=== PATIENT | female | born 1935 ===

== ENCOUNTER 2020-09-29 09:43 | Emergency (ER) | payer SELFPAY ==
[~2020-09-29] VITALS: Ht 165.1 cm; Wt 62.0 kg
--- NOTE | 2020-09-29 10:00 | NUR ---
PT BIB EMS WITH COUGH AND SOB AFTER PT TESTED POSITIVE FOR COVID 19 THIS WEEK. PT IN GOWN IN [facility]. DR MENDOZA AT . PT EDUCATED ON ER PROCESS AND POC AND VERBALIZES UNDERSTANDING. PT HAS CALL LIGHT WITHIN REACH AND DENIES ANY NEEDS AT THIS TIME.
--- NOTE | 2020-09-29 12:01 | NUR ---
PT D/C WITH D/C SUMMARY. PT AMBULATES TO SPOUSE ROOM WHO IS ALSO A PT IN THE ER. PT DENIES ANY OTHER NEEDS PERTAINING TO THIS VISIT.
[2020-09-29 12:03] VITALS: BP 168/91
--- NOTE | 2020-09-29 13:41 | NUR ---
[employer]put RN: transport has been arranged back to [facility] facility via [facility]. expected pickup time 1430
== END 2020-09-29 12:05 | disposition home or self-care (01) ==
LOC: ED 11:59
DX: U07.1 COVID-19 (principal); R06.02 Shortness of breath
CPT/HCPCS: 71046; 93005; 99285; U0003; U0005

== ENCOUNTER 2020-10-09 23:07 | Inpatient (IN) | payer MEDICARE ==
[~2020-10-09] VITALS: Ht 177.8 cm; Wt 60.1 kg
[2020-10-09] MEDS ORDERED: ALEN70SO3 PO (23:26)
[2020-10-09] MEDS ORDERED: DONE10TA14 PO (23:26)
[2020-10-09] MEDS ORDERED: VENL75TA2 PO (23:27)
--- NOTE | 2020-10-09 23:27 | NUR ---
BIB [facility] FOR C/O HYPOXIA AND WEAKNESS,, PT HAS NO SOB WAS ON 100% NON REBREATHER BY [facility] PLACED ON 4 L NC AND PULSE OX 96%-
[2020-10-10 00:33] LABS: MEAN CORPUSCULAR HEMOGLOBIN 29.9 pg (27.0-34.8); MEAN CORPUSCULAR HGB CONC 33.6 g/dL (32.4-35.8); MEAN PLATELET VOLUME 9.2 fL (7.4-10.4); PLATELET COUNT 444 x10^3/uL (130-400); RED BLOOD COUNT 6.48 x10^6/uL (3.82-5.3); RED CELL DISTRIBUTION WIDTH 14.1 % (9.6-15.2)
[2020-10-10 00:43] LABS: ALBUMIN 2.4 g/dL (3.4-5.0); ANION GAP 12 mmol/L (5-15); CHLORIDE 113 mmol/L (98-107)
[2020-10-10 00:46] LABS: ALANINE AMINOTRANSFERASE 16 U/L (12-78); ALKALINE PHOSPHATASE 100 U/L (45-117); BILIRUBIN,TOTAL 0.7 mg/dL (0.2-1.0); CREATININE 1.44 mg/dL (0.55-1.02); TOTAL PROTEIN 8.7 g/dL (6.4-8.2); TROPONIN I < 0.015 ng/mL (0.000-0.045)
--- NOTE | 2020-10-10 00:56 | NUR ---
UPDATED DAUGHTER ON POC VIA PHONE.
[2020-10-10 00:59] LABS: BAND#(MANUAL) 0.51 x10^3/uL; BANDS%(MANUAL) 3 % (0-7); EOS#(MANUAL) 0.17 x10^3/uL (0.0-0.4); EOS% (MANUAL) 1 % (1-7); LYMPH#(MANUAL) 0.34 x10^3/uL (1-3.4); LYMPHS% (MANUAL) 2 % (22-44); METAMYELOCYTES# (MANUAL) 0.17 x10^3/uL (0-0); METAMYELOCYTES% (MANUAL) 1 % (0-1); MONOS#(MANUAL) 1.19 x10^3/uL (0.3-2.7); MONOS% (MANUAL) 7 % (2-9); SEG#(MANUAL) 14.62 x10^3/uL (1.8-6.8); SEGS% (MANUAL) 86 % (42-75)
[2020-10-10 01:00] LABS: <PLATELET ESTIMATE> INCREASED; <RBC MORPHOLOGY> NORMAL; LARGE PLATELETS 1+
[2020-10-10] MEDS ORDERED: SODIUM CHLORIDE 0.9% 1,000ML IVBOLUS ONE (01:30)
[2020-10-10] MEDS ORDERED: AZITHROMYCIN 500 MG in SODIUM CHLORIDE 0.9% 250 ML IV ONE (01:30)
[2020-10-10] MEDS ORDERED: CEFTRIAXONE 1,000 MG in DEXTROSE 5% 50 ML IVPB ONE (01:30)
[2020-10-10] MEDS ORDERED: PHARMACY MAY ADJ FOR RENAL FX MC PRN ×2 (02:30→17:00)
[2020-10-10] MEDS ORDERED: ACETAMINOPHEN 650 MG SUPP PR PRN (02:30)
[2020-10-10] MEDS ORDERED: ACETAMINOPHEN 325 MG TABLET PO PRN (02:30)
[2020-10-10] MEDS: ALBUTEROL-IPRATROPIUM MDI INH INH SCH ×5 (02:30→22:22)
[2020-10-10] MEDS ORDERED: ONDANSETRON 2MG/ML, 2ML IVPush PRN (02:30)
[2020-10-10] MEDS ORDERED: MELATONIN 5 MG TABLET PO PRN (02:30)
--- NOTE | 2020-10-10 03:02 | NUR ---
PATIENT PLACED ON INPATIENT HOSPITAL BED AT THIS TIME.
--- NOTE | 2020-10-10 04:00 | NUR ---
PATIENT REMOVED RIGHT 20G IV. PLACED NEW IV LEFT WRIST 22G.
[2020-10-10] MEDS: ENOXAPARIN 30 MG/0.3 ML SQ SCH (05:40)
[2020-10-10] MEDS: LABETALOL 5MG/ML, 20ML IVPush PRN ×2 (05:50→13:58)
[2020-10-10] MEDS ORDERED: LABETALOL 5MG/ML, 20ML ONE (05:54)
--- NOTE | 2020-10-10 06:56 | NUR ---
REPORT GIVEN TO LAUREL CRUZ
--- NOTE | 2020-10-10 07:33 | NUR ---
PT SLEEPING ON HOSPITAL BED, AROUSABLE TO VOICE. PT NOT ABLE TO FOLLOW INSTRUCTIONS FOR ORAL TEMPERATURE. VSS, NADN. AWAITING ADMIT.
--- NOTE | 2020-10-10 07:51 | NUR ---
PT ATTEMPTING TO REMOVE COVID SWAB DURING COLLECTION. REFUSING 2ND NARE. OBTAINED SAMPLE WALKED TO LAB.
[2020-10-10] MEDS: FLUTICASONE/VILANTEROL 100-25MCG/INH INH SCH (09:00)
[2020-10-10] MEDS ORDERED: FAMOTIDINE 20 MG/2 ML IVPush SCH (09:00)
[2020-10-10] MEDS: ZINC SULFATE 220 MG CAPSULE PO SCH (09:14)
[2020-10-10] MEDS: ASCORBIC ACID 500 MG TABLET PO SCH ×2 (09:14→22:22)
[2020-10-10] MEDS: DEXAMETHASONE 4 MG/ML, 1ML IVPush SCH (09:14)
[2020-10-10 13:47] VITALS: BP 179/115
[2020-10-10 15:02] VITALS: BP 154/92
[2020-10-10 16:22] VITALS: BP 150/89
[2020-10-10] MEDS: PIPERACILLIN/TAZO 3.375 GM in DEXTROSE 5% 50 ML IV SCH ×2 (17:29→23:46)
[2020-10-10] MEDS ORDERED: SODIUM CHLORIDE 0.9% 1,000 ML IV SCH (17:30)
[2020-10-10] MEDS ORDERED: REMDESIVIR 200 MG in SODIUM CHLORIDE 0.9% 250 ML IVPB ONE (18:00)
[2020-10-10 19:58] VITALS: BP 164/92
[2020-10-11] VITALS (7 sets, daily range): BP systolic 141–194; BP diastolic 91–113
[2020-10-11] MEDS: LABETALOL 5MG/ML, 20ML IVPush PRN ×3 (01:32→21:06)
[2020-10-11] MEDS: PIPERACILLIN/TAZO 3.375 GM in DEXTROSE 5% 50 ML IV SCH ×4 (04:37→23:30)
[2020-10-11] MEDS: ALBUTEROL-IPRATROPIUM MDI INH INH SCH ×4 (05:49→21:05)
[2020-10-11] MEDS: ENOXAPARIN 30 MG/0.3 ML SQ SCH (05:49)
[2020-10-11 06:34] LABS: MEAN CORPUSCULAR HEMOGLOBIN 29.9 pg (27.0-34.8); MEAN CORPUSCULAR HGB CONC 33.1 g/dL (32.4-35.8); MEAN PLATELET VOLUME 9.3 fL (7.4-10.4); PLATELET COUNT 416 x10^3/uL (130-400); RED BLOOD COUNT 5.75 x10^6/uL (3.82-5.3); RED CELL DISTRIBUTION WIDTH 14.4 % (9.6-15.2)
[2020-10-11 06:46] LABS: ANION GAP 7 mmol/L (5-15); CALCIUM 8.9 mg/dL (8.5-10.1); CHLORIDE 118 mmol/L (98-107)
[2020-10-11 06:52] LABS: ALANINE AMINOTRANSFERASE 13 U/L (12-78); ALKALINE PHOSPHATASE 78 U/L (45-117); BILIRUBIN,TOTAL 0.5 mg/dL (0.2-1.0); CREATININE 1.39 mg/dL (0.55-1.02); TOTAL PROTEIN 7.2 g/dL (6.4-8.2)
[2020-10-11 07:13] LABS: BAND#(MANUAL) 0.15 x10^3/uL; BANDS%(MANUAL) 1 % (0-7); EOS#(MANUAL) 0.15 x10^3/uL (0.0-0.4); EOS% (MANUAL) 1 % (1-7); LYMPH#(MANUAL) 1.06 x10^3/uL (1-3.4); LYMPHS% (MANUAL) 7 % (22-44); MONOS#(MANUAL) 0.91 x10^3/uL (0.3-2.7); MONOS% (MANUAL) 6 % (2-9); SEG#(MANUAL) 12.92 x10^3/uL (1.8-6.8); SEGS% (MANUAL) 85 % (42-75)
[2020-10-11 07:14] LABS: <PLATELET ESTIMATE> INCREASED; <RBC MORPHOLOGY> NORMAL
[2020-10-11 07:15] LABS: <PLT MORPHOLOGY> NORMAL PLT MORPH
[2020-10-11] MEDS: DEXAMETHASONE 4 MG/ML, 1ML IVPush SCH (08:43)
[2020-10-11] MEDS: FAMOTIDINE 20 MG TABLET PO SCH (08:44)
[2020-10-11] MEDS: ZINC SULFATE 220 MG CAPSULE PO SCH (08:44)
[2020-10-11] MEDS: ASCORBIC ACID 500 MG TABLET PO SCH ×2 (08:44→21:05)
[2020-10-11] MEDS: FLUTICASONE/VILANTEROL 100-25MCG/INH INH SCH (09:00)
[2020-10-11] MEDS ORDERED: FAMOTIDINE 20 MG/2 ML IVPush SCH (09:00)
[2020-10-11 09:10] LABS: ALBUMIN 2.1 g/dL (3.4-5.0); CALCIUM 8.8 mg/dL (8.5-10.1)
[2020-10-11 09:14] LABS: ALANINE AMINOTRANSFERASE 9 U/L (12-78); ALKALINE PHOSPHATASE 81 U/L (45-117); BILIRUBIN,TOTAL 0.6 mg/dL (0.2-1.0); CREATININE 1.38 mg/dL (0.55-1.02); TOTAL PROTEIN 7.1 g/dL (6.4-8.2)
[2020-10-11 09:16] LABS: ANION GAP 7 mmol/L (5-15); CHLORIDE 120 mmol/L (98-107)
[2020-10-11] MEDS: D5%-0.45% NACL 1,000 ML IV SCH (16:28)
[2020-10-11] MEDS: REMDESIVIR 100 MG in SODIUM CHLORIDE 0.9% 250 ML IVPB SCH (18:19)
[2020-10-12 00:40] VITALS: BP 131/87
[2020-10-12] MEDS: PIPERACILLIN/TAZO 3.375 GM in DEXTROSE 5% 50 ML IV SCH ×3 (05:31→17:47)
[2020-10-12] MEDS: ENOXAPARIN 30 MG/0.3 ML SQ SCH (05:31)
[2020-10-12] MEDS: ALBUTEROL-IPRATROPIUM MDI INH INH SCH ×4 (05:31→21:40)
[2020-10-12 05:46] LABS: BASOPHILS % (AUTO) 0 % (0-1); EOSINOPHILS % (AUTO) 1 % (1-7); LYMPHOCYTES % (AUTO) 5 % (22-44); MEAN CORPUSCULAR HEMOGLOBIN 29.9 pg (27.0-34.8); MEAN CORPUSCULAR HGB CONC 33.2 g/dL (32.4-35.8); MEAN PLATELET VOLUME 8.9 fL (7.4-10.4); MONOCYTES % (AUTO) 9 % (2-9); NEUTROPHILS % (AUTO) 85 % (42-75); PLATELET COUNT 408 x10^3/uL (130-400); RED BLOOD COUNT 5.74 x10^6/uL (3.82-5.3); RED CELL DISTRIBUTION WIDTH 14.7 % (9.6-15.2)
[2020-10-12 05:50] LABS: CHLORIDE 125 mmol/L (98-107)
[2020-10-12 06:11] LABS: ALANINE AMINOTRANSFERASE 11 U/L (12-78); ALBUMIN 1.8 g/dL (3.4-5.0); ALKALINE PHOSPHATASE 69 U/L (45-117); ANION GAP 9 mmol/L (5-15); BILIRUBIN,TOTAL 0.5 mg/dL (0.2-1.0); CALCIUM 8.8 mg/dL (8.5-10.1); CREATININE 1.55 mg/dL (0.55-1.02); TOTAL PROTEIN 6.6 g/dL (6.4-8.2)
[2020-10-12] MEDS: ZINC SULFATE 220 MG CAPSULE PO SCH (09:00)
[2020-10-12] MEDS: FLUTICASONE/VILANTEROL 100-25MCG/INH INH SCH (09:00)
[2020-10-12] MEDS: DEXAMETHASONE 4 MG/ML, 1ML IVPush SCH (09:36)
[2020-10-12] MEDS: ASCORBIC ACID 500 MG TABLET PO SCH ×2 (09:36→21:40)
[2020-10-12] MEDS: FAMOTIDINE 20 MG TABLET PO SCH (09:37)
[2020-10-12 11:51] VITALS: BP 202/125
[2020-10-12] MEDS: LABETALOL 5MG/ML, 20ML IVPush PRN (12:01)
[2020-10-12 13:08] VITALS: BP 129/77
[2020-10-12] MEDS: D5%-0.45% NACL 1,000 ML IV SCH (18:38)
[2020-10-12] MEDS: REMDESIVIR 100 MG in SODIUM CHLORIDE 0.9% 250 ML IVPB SCH (18:39)
[2020-10-12 19:40] VITALS: BP 165/91
[2020-10-13 00:05] VITALS: BP 160/81
[2020-10-13] MEDS: PIPERACILLIN/TAZO 3.375 GM in DEXTROSE 5% 50 ML IV SCH ×3 (00:15→11:30)
[2020-10-13] MEDS: ENOXAPARIN 30 MG/0.3 ML SQ SCH (05:19)
[2020-10-13] MEDS: ALBUTEROL-IPRATROPIUM MDI INH INH SCH ×4 (05:20→21:54)
[2020-10-13 07:35] LABS: ALBUMIN 1.8 g/dL (3.4-5.0); ANION GAP 10 mmol/L (5-15); CALCIUM 8.7 mg/dL (8.5-10.1); CHLORIDE 124 mmol/L (98-107)
[2020-10-13 07:39] LABS: ALANINE AMINOTRANSFERASE 12 U/L (12-78); ALKALINE PHOSPHATASE 68 U/L (45-117); BILIRUBIN,TOTAL 0.5 mg/dL (0.2-1.0); CREATININE 2.42 mg/dL (0.55-1.02); TOTAL PROTEIN 6.6 g/dL (6.4-8.2)
[2020-10-13] MEDS: FAMOTIDINE 20 MG TABLET PO SCH (09:00)
[2020-10-13] MEDS: FLUTICASONE/VILANTEROL 100-25MCG/INH INH SCH (09:00)
[2020-10-13 09:06] VITALS: BP 171/75
[2020-10-13] MEDS: DEXAMETHASONE 4 MG/ML, 1ML IVPush SCH (09:48)
[2020-10-13] MEDS: ASCORBIC ACID 500 MG TABLET PO SCH ×2 (09:48→21:54)
[2020-10-13] MEDS: ZINC SULFATE 220 MG CAPSULE PO SCH (09:49)
[2020-10-13 13:15] VITALS: BP 166/82
[2020-10-13] MEDS: DEXTROSE 5% 1,000 ML IV SCH (14:05)
[2020-10-13] MEDS ORDERED: PIPERACILLIN/TAZO(ZOSYN) 2.25 GM in NS 50 ML IVPB SCH (17:00)
[2020-10-13] MEDS: PIPERACILLIN/TAZO 2.25 GM in DEXTROSE 5% 50 ML IVPB SCH ×2 (17:00→18:37)
[2020-10-13 20:00] VITALS: BP 149/84
[2020-10-14] MEDS: PIPERACILLIN/TAZO 2.25 GM in DEXTROSE 5% 50 ML IVPB SCH ×5 (00:33→23:51)
[2020-10-14 00:49] VITALS: BP 175/90
[2020-10-14] MEDS: LABETALOL 5MG/ML, 20ML IVPush PRN (00:54)
[2020-10-14 01:05] VITALS: BP 124/75
[2020-10-14] MEDS: DEXTROSE 5% 1,000 ML IV SCH ×2 (04:48→23:51)
[2020-10-14] MEDS: ENOXAPARIN 30 MG/0.3 ML SQ SCH (04:59)
[2020-10-14] MEDS: ALBUTEROL-IPRATROPIUM MDI INH INH SCH ×4 (06:35→20:38)
[2020-10-14 07:52] LABS: BASOPHILS % (AUTO) 0 % (0-1); EOSINOPHILS % (AUTO) 4 % (1-7); LYMPHOCYTES % (AUTO) 6 % (22-44); MEAN CORPUSCULAR HEMOGLOBIN 29.2 pg (27.0-34.8); MEAN CORPUSCULAR HGB CONC 32.6 g/dL (32.4-35.8); MEAN PLATELET VOLUME 9.3 fL (7.4-10.4); MONOCYTES % (AUTO) 8 % (2-9); NEUTROPHILS % (AUTO) 82 % (42-75); PLATELET COUNT 318 x10^3/uL (130-400); RED BLOOD COUNT 5.58 x10^6/uL (3.82-5.3); RED CELL DISTRIBUTION WIDTH 14.8 % (9.6-15.2)
[2020-10-14 08:02] LABS: ANION GAP 7 mmol/L (5-15); CALCIUM 8.4 mg/dL (8.5-10.1); CHLORIDE 121 mmol/L (98-107); CREATININE 1.88 mg/dL (0.55-1.02)
[2020-10-14] MEDS: FAMOTIDINE 20 MG TABLET PO SCH (09:00)
[2020-10-14] MEDS: FLUTICASONE/VILANTEROL 100-25MCG/INH INH SCH (09:00)
[2020-10-14 09:09] VITALS: BP_SYST 169; BP_SYST 69; BP_DIAS 96
[2020-10-14] MEDS: DEXAMETHASONE 4 MG/ML, 1ML IVPush SCH (09:41)
[2020-10-14] MEDS: ZINC SULFATE 220 MG CAPSULE PO SCH (09:41)
[2020-10-14] MEDS: ASCORBIC ACID 500 MG TABLET PO SCH ×2 (09:41→20:39)
[2020-10-14] MEDS ORDERED: POTASSIUM CHLORIDE 20 MEQ TAB.ER.PRT PO ONE (10:00)
[2020-10-14] MEDS ORDERED: POTASSIUM CHLORIDE 20 MEQ PACKET ONE (10:35)
[2020-10-14 10:42] LABS: ALBUMIN 2.1 g/dL (3.4-5.0); ANION GAP 9 mmol/L (5-15); CALCIUM 8.5 mg/dL (8.5-10.1); CHLORIDE 117 mmol/L (98-107)
[2020-10-14 10:46] LABS: ALANINE AMINOTRANSFERASE 14 U/L (12-78); ALKALINE PHOSPHATASE 72 U/L (45-117); BILIRUBIN,TOTAL 0.8 mg/dL (0.2-1.0); CREATININE 1.96 mg/dL (0.55-1.02); TOTAL PROTEIN 6.8 g/dL (6.4-8.2)
[2020-10-14 12:30] VITALS: BP 125/79
[2020-10-14 19:34] VITALS: BP 130/80
[2020-10-15 00:12] VITALS: BP 144/76
[2020-10-15 04:23] LABS: BASOPHILS % (AUTO) 0 % (0-1); EOSINOPHILS % (AUTO) 3 % (1-7); LYMPHOCYTES % (AUTO) 7 % (22-44); MEAN CORPUSCULAR HGB CONC 33.6 g/dL (32.4-35.8); MEAN PLATELET VOLUME 9.3 fL (7.4-10.4); MONOCYTES % (AUTO) 8 % (2-9); NEUTROPHILS % (AUTO) 81 % (42-75); PLATELET COUNT 345 x10^3/uL (130-400); RED BLOOD COUNT 5.29 x10^6/uL (3.82-5.3); RED CELL DISTRIBUTION WIDTH 14.6 % (9.6-15.2)
[2020-10-15 04:35] LABS: ALBUMIN 1.7 g/dL (3.4-5.0); ANION GAP 7 mmol/L (5-15); CALCIUM 8.2 mg/dL (8.5-10.1); CHLORIDE 114 mmol/L (98-107)
[2020-10-15 04:39] LABS: ALANINE AMINOTRANSFERASE 15 U/L (12-78); ALKALINE PHOSPHATASE 65 U/L (45-117); BILIRUBIN,TOTAL 0.8 mg/dL (0.2-1.0); CREATININE 1.36 mg/dL (0.55-1.02); TOTAL PROTEIN 6.1 g/dL (6.4-8.2)
[2020-10-15] MEDS: ENOXAPARIN 30 MG/0.3 ML SQ SCH (05:47)
[2020-10-15] MEDS: ALBUTEROL-IPRATROPIUM MDI INH INH SCH ×4 (05:47→21:52)
[2020-10-15] MEDS: PIPERACILLIN/TAZO 2.25 GM in DEXTROSE 5% 50 ML IVPB SCH ×2 (05:54→12:33)
[2020-10-15 08:09] VITALS: BP 159/79
[2020-10-15] MEDS: FLUTICASONE/VILANTEROL 100-25MCG/INH INH SCH (08:58)
[2020-10-15] MEDS: ZINC SULFATE 220 MG CAPSULE PO SCH (09:55)
[2020-10-15] MEDS: FAMOTIDINE 20 MG TABLET PO SCH (09:55)
[2020-10-15] MEDS: DEXAMETHASONE 4 MG/ML, 1ML IVPush SCH (09:55)
[2020-10-15] MEDS: ASCORBIC ACID 500 MG TABLET PO SCH ×2 (09:55→21:52)
[2020-10-15] MEDS ORDERED: POTASSIUM CHLORIDE 20 MEQ TAB.ER.PRT PO SCH (10:00)
[2020-10-15 14:46] VITALS: BP 130/78
[2020-10-15] MEDS: FUROSEMIDE 20 MG TABLET PO SCH (17:01)
[2020-10-15] MEDS: POTASSIUM CHLORIDE 20 MEQ TAB.ER.PRT PO SCH ×2 (17:01→21:53)
[2020-10-15 20:00] VITALS: BP 123/72
[2020-10-16 02:00] VITALS: BP 118/66
[2020-10-16 06:10] LABS: CHLORIDE 112 mmol/L (98-107)
[2020-10-16] MEDS: ALBUTEROL-IPRATROPIUM MDI INH INH SCH ×4 (06:11→20:22)
[2020-10-16] MEDS: ENOXAPARIN 30 MG/0.3 ML SQ SCH (06:11)
[2020-10-16 06:23] LABS: ANION GAP 8 mmol/L (5-15); CALCIUM 8.9 mg/dL (8.5-10.1); CREATININE 1.17 mg/dL (0.55-1.02)
[2020-10-16] MEDS: DEXAMETHASONE 4 MG/ML, 1ML IVPush SCH (08:58)
[2020-10-16] MEDS: ZINC SULFATE 220 MG CAPSULE PO SCH (08:59)
[2020-10-16] MEDS: ASCORBIC ACID 500 MG TABLET PO SCH ×2 (08:59→20:21)
[2020-10-16] MEDS: FUROSEMIDE 20 MG TABLET PO SCH ×2 (08:59→16:07)
[2020-10-16] MEDS: FAMOTIDINE 20 MG TABLET PO SCH (08:59)
[2020-10-16] MEDS: POTASSIUM CHLORIDE 20 MEQ TAB.ER.PRT PO SCH (08:59)
[2020-10-16 09:08] VITALS: BP 137/84
[2020-10-16] MEDS: FLUTICASONE/VILANTEROL 100-25MCG/INH INH SCH (10:23)
[2020-10-16 12:18] VITALS: BP 154/94
[2020-10-16 18:43] VITALS: BP 146/87
[2020-10-17 02:33] VITALS: BP 167/107
[2020-10-17 02:38] VITALS: BP 150/97
[2020-10-17] MEDS: ENOXAPARIN 30 MG/0.3 ML SQ SCH (05:40)
[2020-10-17] MEDS: ALBUTEROL-IPRATROPIUM MDI INH INH SCH ×4 (05:41→20:30)
[2020-10-17 07:28] VITALS: BP 163/77
[2020-10-17] MEDS: FAMOTIDINE 20 MG TABLET PO SCH (08:30)
[2020-10-17] MEDS: ZINC SULFATE 220 MG CAPSULE PO SCH (08:30)
[2020-10-17] MEDS: ASCORBIC ACID 500 MG TABLET PO SCH ×2 (08:30→20:30)
[2020-10-17] MEDS: FLUTICASONE/VILANTEROL 100-25MCG/INH INH SCH (08:31)
[2020-10-17] MEDS: DEXAMETHASONE 4 MG/ML, 1ML IVPush SCH (08:31)
[2020-10-17 12:00] VITALS: BP 149/82
[2020-10-17 18:43] VITALS: BP 149/78
[2020-10-18 01:35] VITALS: BP 165/107
[2020-10-18] MEDS: ENOXAPARIN 30 MG/0.3 ML SQ SCH (05:59)
[2020-10-18] MEDS: ALBUTEROL-IPRATROPIUM MDI INH INH SCH ×4 (06:00→21:19)
[2020-10-18 07:16] VITALS: BP 150/92
[2020-10-18] MEDS: DEXAMETHASONE 4 MG/ML, 1ML IVPush SCH (09:56)
[2020-10-18] MEDS: ZINC SULFATE 220 MG CAPSULE PO SCH (09:57)
[2020-10-18] MEDS: FAMOTIDINE 20 MG TABLET PO SCH (09:57)
[2020-10-18] MEDS: FLUTICASONE/VILANTEROL 100-25MCG/INH INH SCH (09:57)
[2020-10-18] MEDS: ASCORBIC ACID 500 MG TABLET PO SCH ×2 (09:57→21:20)
[2020-10-18 12:38] VITALS: BP 128/79
[2020-10-18 18:53] VITALS: BP 122/73
[2020-10-19 02:05] VITALS: BP 118/68
[2020-10-19] MEDS: ENOXAPARIN 40 MG/0.4 ML SQ SCH (05:22)
[2020-10-19] MEDS: ALBUTEROL-IPRATROPIUM MDI INH INH SCH ×4 (05:22→21:00)
[2020-10-19 08:03] VITALS: BP 137/74
[2020-10-19] MEDS: FAMOTIDINE 20 MG TABLET PO SCH (09:00)
[2020-10-19] MEDS: DEXAMETHASONE 4 MG/ML, 1ML IVPush SCH (09:01)
[2020-10-19] MEDS: ASCORBIC ACID 500 MG TABLET PO SCH ×2 (09:01→20:40)
[2020-10-19] MEDS: ZINC SULFATE 220 MG CAPSULE PO SCH (09:01)
[2020-10-19] MEDS: FLUTICASONE/VILANTEROL 100-25MCG/INH INH SCH (09:08)
[2020-10-19 12:26] VITALS: BP 117/71
[2020-10-19 20:00] VITALS: BP 132/74
[2020-10-20 02:00] VITALS: BP 150/84
[2020-10-20] MEDS: ENOXAPARIN 40 MG/0.4 ML SQ SCH (05:10)
[2020-10-20] MEDS: ALBUTEROL-IPRATROPIUM MDI INH INH SCH ×4 (05:11→21:19)
[2020-10-20] MEDS: ASCORBIC ACID 500 MG TABLET PO SCH ×2 (09:15→21:19)
[2020-10-20] MEDS: ZINC SULFATE 220 MG CAPSULE PO SCH (09:15)
[2020-10-20] MEDS: FAMOTIDINE 20 MG TABLET PO SCH (09:15)
[2020-10-20] MEDS: FLUTICASONE/VILANTEROL 100-25MCG/INH INH SCH (09:16)
[2020-10-20] MEDS: DEXAMETHASONE 4 MG/ML, 1ML IVPush SCH (09:16)
[2020-10-20 09:20] VITALS: BP 113/69
[2020-10-20 14:26] VITALS: BP 127/73
[2020-10-20 19:41] VITALS: BP 149/82
[2020-10-21 01:49] VITALS: BP 136/65
[2020-10-21] MEDS: ENOXAPARIN 40 MG/0.4 ML SQ SCH (06:02)
[2020-10-21] MEDS: ALBUTEROL-IPRATROPIUM MDI INH INH SCH ×4 (06:02→21:00)
[2020-10-21 07:33] VITALS: BP 132/69
[2020-10-21] MEDS: DEXAMETHASONE 4 MG/ML, 1ML IVPush SCH (09:15)
[2020-10-21] MEDS: ZINC SULFATE 220 MG CAPSULE PO SCH (09:15)
[2020-10-21] MEDS: ASCORBIC ACID 500 MG TABLET PO SCH ×2 (09:15→21:00)
[2020-10-21] MEDS: FLUTICASONE/VILANTEROL 100-25MCG/INH INH SCH (09:15)
[2020-10-21] MEDS: FAMOTIDINE 20 MG TABLET PO SCH (09:15)
[2020-10-21 12:04] VITALS: BP 134/73
[2020-10-21 20:28] VITALS: BP 132/70
[2020-10-22 00:38] VITALS: BP 134/70
[2020-10-22] MEDS: ENOXAPARIN 40 MG/0.4 ML SQ SCH (06:00)
[2020-10-22] MEDS: ALBUTEROL-IPRATROPIUM MDI INH INH SCH ×4 (06:00→21:00)
[2020-10-22] MEDS: FLUTICASONE/VILANTEROL 100-25MCG/INH INH SCH (09:00)
[2020-10-22 09:12] VITALS: BP 147/72
[2020-10-22] MEDS: ZINC SULFATE 220 MG CAPSULE PO SCH (09:14)
[2020-10-22] MEDS: ASCORBIC ACID 500 MG TABLET PO SCH ×2 (09:14→21:00)
[2020-10-22] MEDS: DEXAMETHASONE 4 MG/ML, 1ML IVPush SCH (09:14)
[2020-10-22] MEDS: FAMOTIDINE 20 MG TABLET PO SCH (09:15)
[2020-10-22 13:43] VITALS: BP 132/66
[2020-10-22] MEDS: POLYETHYLENE GLYCOL 17 GM PACKET PO PRN (14:25)
[2020-10-22 19:09] VITALS: BP 126/62
[2020-10-23 01:40] VITALS: BP 119/56
[2020-10-23] MEDS: ALBUTEROL-IPRATROPIUM MDI INH INH SCH ×4 (06:00→21:06)
[2020-10-23] MEDS: ENOXAPARIN 40 MG/0.4 ML SQ SCH (06:00)
[2020-10-23 07:28] VITALS: BP 142/74
[2020-10-23] MEDS: ZINC SULFATE 220 MG CAPSULE PO SCH (08:43)
[2020-10-23] MEDS: ASCORBIC ACID 500 MG TABLET PO SCH ×2 (08:43→21:06)
[2020-10-23] MEDS: DEXAMETHASONE 4 MG/ML, 1ML IVPush SCH (08:43)
[2020-10-23] MEDS: FAMOTIDINE 20 MG TABLET PO SCH (08:43)
[2020-10-23] MEDS: FLUTICASONE/VILANTEROL 100-25MCG/INH INH SCH (08:44)
[2020-10-23] MEDS: POLYETHYLENE GLYCOL 17 GM PACKET PO PRN (09:25)
[2020-10-23 12:26] VITALS: BP 127/71
[2020-10-23 19:13] VITALS: BP 119/68
[2020-10-24 00:21] VITALS: BP 149/81
[2020-10-24] MEDS: ENOXAPARIN 40 MG/0.4 ML SQ SCH (05:17)
[2020-10-24] MEDS: ALBUTEROL-IPRATROPIUM MDI INH INH SCH ×4 (05:17→21:23)
[2020-10-24 07:23] VITALS: BP 146/83
[2020-10-24 10:15] VITALS: BP 117/70
[2020-10-24] MEDS: FAMOTIDINE 20 MG TABLET PO SCH (10:22)
[2020-10-24] MEDS: DEXAMETHASONE 4 MG/ML, 1ML IVPush SCH (10:22)
[2020-10-24] MEDS: FLUTICASONE/VILANTEROL 100-25MCG/INH INH SCH (10:22)
[2020-10-24] MEDS: ASCORBIC ACID 500 MG TABLET PO SCH ×2 (10:23→21:23)
[2020-10-24] MEDS: ZINC SULFATE 220 MG CAPSULE PO SCH (10:23)
[2020-10-24 14:22] VITALS: BP 144/77
[2020-10-24 19:43] VITALS: BP 114/75
[2020-10-25 00:44] VITALS: BP 154/87
[2020-10-25] MEDS: ENOXAPARIN 40 MG/0.4 ML SQ SCH (05:27)
[2020-10-25] MEDS: ALBUTEROL-IPRATROPIUM MDI INH INH SCH ×3 (05:27→15:15)
[2020-10-25 07:07] VITALS: BP 155/82
[2020-10-25] MEDS: FLUTICASONE/VILANTEROL 100-25MCG/INH INH SCH (08:40)
[2020-10-25] MEDS: FAMOTIDINE 20 MG TABLET PO SCH (08:41)
[2020-10-25] MEDS: ASCORBIC ACID 500 MG TABLET PO SCH (08:41)
[2020-10-25] MEDS: ZINC SULFATE 220 MG CAPSULE PO SCH (08:41)
[2020-10-25] MEDS: DEXAMETHASONE 4 MG/ML, 1ML IVPush SCH (08:41)
[2020-10-25 13:25] VITALS: BP 124/71
[2020-10-25] MEDS ORDERED: FAMO20TA7 PO (15:13)
[2020-10-25] MEDS ORDERED: FLUT1AER INH (15:13)
== END 2020-10-25 18:11 | DRG 871 ==
LOC: ED 10-10 00:25 → EDIP 10-10 02:00 → 4WST 10-10 08:56
PROVIDERS: ADMIT Internal Medicine; ATTEND Family Medicine
PROC: XW033E5 Introduction of Remdesivir Anti-infective into Peripheral Vein, Percutaneous Approach, New Technology Group 5 (ICD-10-PCS; principal; 2020-10-10)
DX: A41.89 Other specified sepsis (principal); U07.1 COVID-19; J96.01 Acute respiratory failure with hypoxia; N17.0 Acute kidney failure with tubular necrosis; J12.82 Pneumonia due to coronavirus disease 2019; G93.41 Metabolic encephalopathy; E87.0 Hyperosmolality and hypernatremia; E87.2 Acidosis; E86.0 Dehydration; F02.80 Dementia in other diseases classified elsewhere, unspecified severity, without behavioral disturbance, psychotic disturbance, mood disturbance, and anxiety; G30.1 Alzheimer's disease with late onset; M81.0 Age-related osteoporosis without current pathological fracture; F32.9 Major depressive disorder, single episode, unspecified; R13.10 Dysphagia, unspecified; R32 Unspecified urinary incontinence; Z66 Do not resuscitate; Z74.01 Bed confinement status; Z79.899 Other long term (current) drug therapy
CPT/HCPCS: 36415; 71045; 80048; 80053; 82962; 83735; 83880; 84145; 84295; 84484; 85025; 86480; 87040; 93005; 96374; G0378; J0456; J0696; J1100; J1650; J2543; J7070; U0005; J7030; J7050; U0003